=== PATIENT | female | born 2000 | race Caucasian/White ===

== ENCOUNTER 2021-04-08 15:43 | Emergency (ER) | payer OTHER ==
[~2021-04-08] VITALS: Ht 167.6 cm; Wt 58.6 kg
[2021-04-08 15:44] VITALS: BP 131/84
[2021-04-08 16:34] LABS: BASO # 0.1 10^3/uL (0.0-0.2); BASO % 0.6 % (0.0-1.0); EOS # 0.1 10^3/uL (0.0-0.5); EOS % 0.8 % (0.0-3.0); LYMPH % 22.5 % (24.0-44.0); MEAN CORPUSCULAR HEMOGLOBIN 30.4 pg (27.0-33.0); MEAN CORPUSCULAR HGB CONC 34.1 g/dl (32.0-36.5); MEAN CORPUSCULAR VOLUME 89.1 fl (80.0-96.0); MONO # 0.9 10^3/uL (0.0-0.8); MONO % 9.7 % (2.0-8.0); NEUTROPHILS # 5.8 10^3/uL (1.5-8.5); NEUTROPHILS % 66.1 % (36.0-66.0); PLATELET COUNT, AUTOMATED 369 10^3/uL (150-450); WHITE BLOOD COUNT 8.8 10^3/uL (4.0-10.0)
[2021-04-08 17:02] LABS: HCG, SERUM QUALITATIVE NEGATIVE (NEGATIVE)
[2021-04-08 17:04] LABS: BLOOD UREA NITROGEN 11 MG/DL (7-18); CREATININE FOR GFR 0.91 MG/DL (0.55-1.30); GLUCOSE, FASTING 75 MG/DL (70-100); POTASSIUM SERUM 4.2 MEQ/L (3.5-5.1); SODIUM LEVEL 141 MEQ/L (136-145)
[2021-04-08 17:05] LABS: ALBUMIN 4.5 GM/DL (3.2-5.2); ALT/SGPT 31 U/L (12-78); BILIRUBIN,DIRECT 0.2 MG/DL (0.0-0.2); BILIRUBIN,TOTAL 0.8 MG/DL (0.2-1.0); CALCIUM LEVEL 9.5 MG/DL (8.5-10.1); CARBON DIOXIDE LEVEL 29 MEQ/L (21-32); CHLORIDE LEVEL 108 MEQ/L (98-107); LIPASE 74 U/L (73-393); TOTAL PROTEIN 7.8 GM/DL (6.4-8.2)
[2021-04-08] MEDS ORDERED: ACETAMINOPHEN 500 MG TAB PO ONE (18:00)
--- NOTE | 2021-04-08 19:23 | REP ---
INDICATION: RLQ abd pain. COMPARISON: None. TECHNIQUE: Transabdominal imaging with color flow and duplex Doppler interrogation of the adnexa. Technologist notes indicate that the patient declined an endovaginal probe ultrasound at this time. FINDINGS: Bladder is only partially filled at 5.1 x 4.7 x 1.8 cm no gross abnormalities are seen. The uterus is 5.9 x 3.1 x 5 cm. It is anteverted. There is a central endometrial echogenic stripe with thickness of 8 mm. No definite mass or fluid in the endometrial cavity. No uterine contour abnormality. No free fluid in the cul-de-sac. The right ovary is 3 x 2.1 x 1.8 cm. Within it is a 1.6 x 1.3 x 1 cm hypoechoic area with a vascular rim but no color flow within. Ovarian Doppler shows resistive index of 0.56, normal. No adjacent free fluid or paraovarian mass. The left ovary is 3 x 1.8 x 1.6 cm. Doppler tracing shows resistive index of 0.67. I do not see a left ovarian cyst or solid mass. No adjacent free fluid. IMPRESSION: 1. Right ovary with a hypoechoic focus 1.6 x 1.3 x 1 cm that may be complex follicle, (cyst defined at 2.5 cm). I am unable to characterize it further without EV probe. No tenderness described on scanning and no adjacent free fluid. 2. Left ovary unremarkable and the uterus is anteverted without enlargement, contour deformity or abnormality of the endometrium. No free fluid in the cul-de-sac or adjacent to left ovary. <Electronically signed by Dereje Modi > 04/08/211919
--- NOTE | 2021-04-11 14:54 | ED PDOC ---
Post-Departure Follow-Up radiology report faxed to [facility] Marilu Khan MD Apr 11, 2021 14:53
== END 2021-04-08 20:10 | disposition home or self-care (01) ==
LOC: M ED 15:43
DX: R10.31 Right lower quadrant pain (principal); N85.4 Malposition of uterus

== ENCOUNTER 2021-09-19 00:02 | Emergency (ER) | payer OTHER ==
[~2021-09-19] VITALS: Ht 167.6 cm; Wt 59.1 kg
[2021-09-19 00:02] VITALS: BP 133/84
[2021-09-19] MEDS ORDERED: diphenhydrAMINE 50MG CAP PO ONE (05:50)
== END 2021-09-19 06:44 | disposition home or self-care (01) ==
LOC: M ED 00:02
DX: L50.9 Urticaria, unspecified (principal); Z86.16 Personal history of COVID-19

== ENCOUNTER 2022-04-08 10:18 | Emergency (ER) | payer OTHER ==
[~2022-04-08] VITALS: Ht 167.6 cm; Wt 56.0 kg
[2022-04-08] MEDS ORDERED: KETO10TAB PO (13:03)
[2022-04-08 13:16] VITALS: BP 110/58
== END 2022-04-08 13:17 | disposition home or self-care (01) ==
LOC: M ED 10:18
DX: S43.001A Unspecified subluxation of right shoulder joint, initial encounter (principal); Y92.9 Unspecified place or not applicable; Y93.B9 Activity, other involving muscle strengthening exercises; Y99.1 Military activity

== ENCOUNTER 2022-08-04 14:32 | Emergency (ER) | payer OTHER ==
[~2022-08-04] VITALS: Ht 167.6 cm; Wt 55.3 kg
[~2022-08-04 14:32] MED LIST: KETO10TAB PO
[2022-08-04] MEDS ORDERED: EXCETAB32 PO (15:24)
[2022-08-04] MEDS ORDERED: ACETAMINOPHEN TAB 650MG DOSE (2X325MG) PO ONE (19:50)
[2022-08-04] MEDS ORDERED: METOCLOPRAMIDE 10MG TAB PO ONE (19:50)
[2022-08-04] MEDS ORDERED: diphenhydrAMINE 25MG CAP PO ONE (19:50)
[2022-08-04 20:43] VITALS: BP 125/79
== END 2022-08-04 20:44 | disposition home or self-care (01) ==
LOC: M ED 14:32
DX: G43.909 Migraine, unspecified, not intractable, without status migrainosus (principal); F10.10 Alcohol abuse, uncomplicated; Z79.82 Long term (current) use of aspirin; Z79.899 Other long term (current) drug therapy

== ENCOUNTER → 2022-08-19 | Outpatient (CLI) | payer OTHER ==
[~2022-08-19] MED LIST changes: +EXCETAB32 PO
== END ==
LOC: M RAD 14:38
PROVIDERS: ATTEND Otolaryngology
DX: M26.69 Other specified disorders of temporomandibular joint (principal)

== ENCOUNTER → 2023-02-09 | Outpatient (CLI) | payer OTHER | LOC: M RAD 06:24 | DX: M21.241 Flexion deformity, right finger joints (principal); M79.641 Pain in right hand; S66.316A Strain of extensor muscle, fascia and tendon of right little finger at wrist and hand level, initial encounter; X58.XXXA Exposure to other specified factors, initial encounter; Y92.9 Unspecified place or not applicable; Y93.9 Activity, unspecified; Y99.9 Unspecified external cause status ==

== ENCOUNTER 2023-07-02 12:50 | Emergency (ER) | payer OTHER ==
[~2023-07-02] VITALS: Ht 167.6 cm; Wt 57.7 kg
[2023-07-02] MEDS ORDERED: ACETAMINOPHEN 500 MG TAB PO ONE (14:20)
[2023-07-02 14:40] VITALS: BP 134/90; TEMP 98.3; O2SAT 99
== END 2023-07-02 14:43 | disposition home or self-care (01) ==
LOC: M ED 12:50
DX: S00.33XA Contusion of nose, initial encounter (principal); W54.1XXA Struck by dog, initial encounter; F10.10 Alcohol abuse, uncomplicated; Y92.009 Unspecified place in unspecified non-institutional (private) residence as the place of occurrence of the external cause